=== PATIENT | female | born 1950 | race Caucasian/White ===

== ENCOUNTER 2024-10-30 05:46 | Inpatient (IN) | payer MEDICARE, MEDICAID ==
[2024-10-25 14:34] LABS: BILIRUBIN,URINE NEGATIVE (Neg); CLARITY,URINE SLIGHTLY CLOUDY (Clear); COLOR,URINE YELLOW (Yellow); GLUCOSE, URINE 250 mg/dl (Neg); KETONES,URINE NEGATIVE (Neg); LEUKOCYTE ESTERASE ,URINE NEGATIVE (Neg); NITRITES, URINE POSITIVE (Neg); OCCULT BLOOD,URINE NEGATIVE (Neg); PROTEIN,URINE TRACE mg/dl (Neg); UROBILINOGEN,URINE 0.2 E.U/dL (0.2-1.0)
[2024-10-25 14:36] LABS: BASOPHILS % (AUTO) 0.8 % (0-1); EOSINOPHILS # (AUTO) 0.1 X10'3 (0-0.9); EOSINOPHILS % (AUTO) 1.3 % (0-6); LYMPHOCYTES # (AUTO) 1.7 X10'3 (1.1-4.8); LYMPHOCYTES % (AUTO) 27.6 % (21-51); MEAN CORPUSCULAR HEMOGLOBIN 32.3 PG (27.0-31.0); MEAN CORPUSCULAR HGB CONC 32.7 g/dL (33.0-36.5); MEAN CORPUSCULAR VOLUME 98.6 FL (78-98); MEAN PLATELET VOLUME 7.8 FL (7.4-10.4); MONOCYTES # (AUTO) 0.6 X10'3 (0-0.9); MONOCYTES % (AUTO) 10.4 % (2-12); NEUTROPHILS # (AUTO) 3.7 X10'3 (1.8-7.7); NEUTROPHILS % (AUTO) 59.9 % (42-75); PRE OP HEMATOCRIT 40.4 % (35.0-45.0); PRE OP HEMOGLOBIN 13.2 g/dL (12.0-16.0); PRE OP PLATELET COUNT 234 X10'3 (140-440); PRE OP WHITE BLOOD COUNT 6.2 10'3 (4.8-10.8)
[2024-10-25 14:38] LABS: UA COLLECTION TYPE CLN CATCH MIDSTREAM
[2024-10-25 14:44] LABS: ALBUMIN 3.8 G/DL (3.4-5.0); ALKALINE PHOSPHATASE 88 IU/L (46-116); BLOOD UREA NITROGEN 26 MG/DL (7-18); BUN/CREATININE RATIO 17.2 (10.0-20.0); CALCIUM 9.4 MG/DL (8.5-10.1); CHLORIDE 106 MMOL/L (99-107); CREATININE 1.51 MG/DL (0.40-0.90); PRE OP ALT 23 U/L (30-65); PRE OP ANION GAP 11 (8-16); PRE OP AST 15 U/L (10-37); PRE OP BILIRUB, TOTAL 0.6 MG/DL (0.0-1.0); PRE OP GLUCOSE 114 MG/DL (70-104); PRE OP POTASSIUM 4.2 MMOL/L (3.4-5.1); PRE OP SODIUM 139 MMOL/L (135-145); TOTAL CARBON DIOXIDE 22.1 MMOL/L (24-32); TOTAL PROTEIN 7.6 G/DL (6.4-8.2); eGFR 34 ML/MIN
[2024-10-25 14:46] LABS: BACTERIA,URINE 4+ /HPF (Neg); MUCUS STRANDS NONE SEEN /LPF (Neg); RBC,URINE NONE SEEN /HPF (0-2); SQUAMOUS EPITHELIAL CELL,UR FEW /LPF (FEW)
[2024-10-25 14:47] LABS: WBC CLUMPS,URINE FEW /HPF (NEGATIVE)
[2024-10-30] VITALS (24 sets, daily range): BP systolic 128–160; BP diastolic 62–89; PULSE 71–86; RESP 12–22; TEMP 96.8–97.9; O2SAT 92–98
[~2024-10-30] VITALS: Ht 142.2 cm; Wt 65.0 kg
[2024-10-30] MEDS: enoxaparin 40mg/0.4ml syringe SUBCUT ONE (05:30)
[2024-10-30] MEDS: famotidine 20mg tablet PO ONE (05:30)
[~2024-10-30 05:46] MED LIST: ASCO500T8 PO; ATOR20TA66 PO; CALC-1215 PO; CITA20TA17 PO; DAPA10TA PO; DEXL60CA3 PO; FERR-39 PO; INSU100V49 SQ; LINA145C PO; METO-539 PO; POTA10CA95 PO; SEMA2PEN SUBCUT
[2024-10-30] MEDS: clindamycin 600mg/D5W 50ml 50 ML IV ONE (06:11)
[2024-10-30] MEDS: DOCUMENT DATE & TIME OF BETA-BLOCKER PO ONE (06:12)
[2024-10-30] MEDS ORDERED: vancomycin 1,000mg inj ONE (06:35)
[2024-10-30] MEDS ORDERED: gelatin sponge, absorbable (Gelfoam 100) sponge TP ONE (06:35)
[2024-10-30] MEDS ORDERED: BUPIVACAINE liposomal/PF 13.3 MG/ML vial IM ONE (06:36)
[2024-10-30] MEDS: gentamicin inj 325 MG in normal saline 100ml IV soln 91.875 ML IV ONE (07:25)
[2024-10-30] MEDS ORDERED: MIDAZolam 1 MG/ML 5ML VIAL ONE (07:30)
[2024-10-30] MEDS ORDERED: fentaNYL/PF 50MCG/1 ML 2ML syringe ONE (07:30)
[2024-10-30] MEDS ORDERED: dexamethasone sod phosphate 4mg/ml inj. ONE (07:35)
[2024-10-30] MEDS ORDERED: ROPIVAcaine 0.5% (5mg/ml) 30ml vial ONE (07:35)
[2024-10-30] MEDS ORDERED: propofol inj 20 ML IV ONE (07:35)
[2024-10-30] MEDS ORDERED: meperidine/PF 25mg/ml syringe IV PRN ×3 (07:45)
[2024-10-30] MEDS ORDERED: sevoflurane 250ml liquid IH ONE (07:45)
[2024-10-30] MEDS ORDERED: labetalol 20mg/4ml (5mg/ml) syringe IV PRN (07:45)
[2024-10-30] MEDS ORDERED: proCHLORperazine 10 MG/2 ml inj IV PRN (07:45)
[2024-10-30] MEDS ORDERED: morphine 4 MG/ML inj SYRINge IV PRN (07:45)
[2024-10-30] MEDS ORDERED: morphine 2 MG/ML inj. syringe IV PRN (07:45)
[2024-10-30] MEDS ORDERED: enalaprilat dihydrate 2.5mg/2ml vial IV PRN (07:45)
[2024-10-30] MEDS ORDERED: ondansetron/PF 4mg/2ml inj IV PRN (07:45)
[2024-10-30] MEDS ORDERED: BUPIVAcaine/PF 7.5mg/ml (0.75%) 10ml vial ONE (08:32)
[2024-10-30] MEDS ORDERED: ROPIVAcaine 0.2% (10 MG/5 ML) BOLUS INJECTION POPLITEAL PRN (10:20)
[2024-10-30] MEDS ORDERED: ondansetron/PF 4mg/2ml inj ONE (10:26)
[2024-10-30] MEDS ORDERED: acetaminophen 325mg tablet PO PRN (10:50)
[2024-10-30] MEDS ORDERED: acetaminophen 1,000mg/100ml IV 100 ML IV ONE (10:51)
[2024-10-30] MEDS: ROPIVAcaine 0.2%/PF PUMP/bolus 545 ML POPLITEAL SCH (11:25)
[2024-10-30] MEDS: ringers solution, lacted 1,000 ML IV SCH ×2 (11:35→14:32)
[2024-10-30] MEDS: enoxaparin 30mg/0.3ml syringe SQ SCH (15:15)
[2024-10-30] MEDS: INSULIN LISPRO 100 UNIT/ML INSULN.PEN MULTI-DOSE SQ ONE ×2 (15:51→23:56)
[2024-10-30] MEDS: HYDROcodone/acetaminophen 10/325mg tab PO PRN ×2 (17:28→23:58)
[2024-10-30] MEDS: docusate sod 100mg capsule PO SCH (21:40)
[2024-10-30] MEDS ORDERED: DEXTROSE 15 GM of carb/4 tabs (each vial/BOTTLE has 4 tablets) PO PRN ×2 (22:00)
[2024-10-30] MEDS ORDERED: dextrose 50%-water 50ml dispensing syringe IV PRN ×2 (22:00)
[2024-10-30] MEDS ORDERED: glucagon, human recombinant 1mg kit SUBCUT PRN (22:00)
[2024-10-31 02:00] VITALS: BP 152/81; PULSE 68; RESP 16; TEMP 97.8; O2SAT 98
[2024-10-31 06:00] VITALS: BP 160/80; PULSE 69; RESP 15; TEMP 98; O2SAT 96
[2024-10-31] MEDS: INSULIN LISPRO 100 UNIT/ML INSULN.PEN MULTI-DOSE SQ SCH (07:00)
[2024-10-31] MEDS: gentamicin inj 325 MG in normal saline 100ml IV soln 91.875 ML IV SCH (08:04)
[2024-10-31 10:00] VITALS: BP 135/77; PULSE 80; RESP 16; TEMP 97.6; O2SAT 96
[2024-10-31 18:00] VITALS: BP 150/70; PULSE 67; RESP 15; TEMP 97.9; O2SAT 96
[2024-10-31] MEDS: gabapentin 300mg capsule PO SCH (20:55)
[2024-10-31] MEDS: morphine 2 MG/ML inj. syringe IV PRN (20:55)
[2024-10-31 22:00] VITALS: BP 172/79; PULSE 70; RESP 16; TEMP 97.9; O2SAT 95
[2024-11-01 06:00] VITALS: BP 157/85; PULSE 83; RESP 16; TEMP 98; O2SAT 95
[2024-11-01 07:39] LABS: ALBUMIN 3.2 G/DL (3.4-5.0); ANION GAP 8 (8-16); BLOOD UREA NITROGEN 27 MG/DL (7-18); BUN/CREATININE RATIO 17.1 (10.0-20.0); CALCIUM 8.9 MG/DL (8.5-10.1); CHLORIDE 106 MMOL/L (99-107); CREATININE 1.58 MG/DL (0.40-0.90); GLUCOSE 171 MG/DL (70-104); POTASSIUM 3.9 MMOL/L (3.5-5.1); SODIUM 139 MMOL/L (135-145); TOTAL CARBON DIOXIDE 24.9 MMOL/L (24-32); eCRCL 18 ML/MIN; eGFR 32 ML/MIN
[2024-11-01 07:44] LABS: BASOPHILS % (AUTO) 0.4 % (0-1); EOSINOPHILS % (AUTO) 0.6 % (0-6); HEMATOCRIT 36.8 % (35.0-45.0); HEMOGLOBIN 12.2 g/dl (12.0-16.0); LYMPHOCYTES # (AUTO) 1.7 X10'3 (1.1-4.8); LYMPHOCYTES % (AUTO) 23.1 % (21-51); MEAN CORPUSCULAR HGB CONC 33.2 g/dL (33.0-36.5); MEAN CORPUSCULAR VOLUME 99.3 FL (78-98); MEAN PLATELET VOLUME 8.1 FL (7.4-10.4); MONOCYTES # (AUTO) 0.9 X10'3 (0-0.9); MONOCYTES % (AUTO) 11.9 % (2-12); NEUTROPHILS # (AUTO) 4.8 X10'3 (1.8-7.7); PLATELET COUNT 186 X10'3 (140-440); RED BLOOD COUNT 3.71 X10'6 (4.20-5.60); WHITE BLOOD COUNT 7.5 X10'3 (4.5-11.0)
[2024-11-01 08:00] VITALS: RESP 16; O2SAT 95
[2024-11-01 10:00] VITALS: BP 167/87; PULSE 81; RESP 16; TEMP 97.7; O2SAT 95
[2024-11-01 18:00] VITALS: BP 170/90; PULSE 78; RESP 16; TEMP 98.4; O2SAT 98
[2024-11-01 22:00] VITALS: BP 136/86; PULSE 74; RESP 16; TEMP 98.2; O2SAT 96
[2024-11-02 06:00] VITALS: BP 176/98; PULSE 75; RESP 16; TEMP 97.7; O2SAT 97
[2024-11-02 07:45] VITALS: RESP 14; O2SAT 97
[2024-11-02] MEDS ORDERED: INSULIN LISPRO 100 UNIT/ML INSULN.PEN MULTI-DOSE SQ PRN (08:35)
[2024-11-02] MEDS: ondansetron/PF 4mg/2ml inj IV PRN (08:45)
[2024-11-02] MEDS: magnesium citrate 296ml oral solution PO ONE (09:27)
[2024-11-02] MEDS: metoprolol succinate 25mg (24-HOUR) SR. Tablet PO ONE (09:28)
[2024-11-02 10:00] VITALS: BP 112/62; PULSE 98; RESP 16; TEMP 98.2; O2SAT 93
[2024-11-02 18:00] VITALS: BP 133/72; PULSE 75; RESP 16; TEMP 98.3; O2SAT 96
[2024-11-02] MEDS: atorvastatin 20mg tablet PO SCH (20:27)
[2024-11-02 22:00] VITALS: BP 132/58; PULSE 72; RESP 20; TEMP 98; O2SAT 96
[2024-11-03 06:00] VITALS: BP 154/67; PULSE 76; RESP 16; TEMP 97.3; O2SAT 96
[2024-11-03 08:00] VITALS: RESP 17; O2SAT 94
[2024-11-03] MEDS ORDERED: non-formulary drug (Calcium Carbonate/Vitamin D3 (Calcium + D 600 Mg Tablet) 1 EACH) PO SCH (08:00)
[2024-11-03] MEDS: enoxaparin 30mg/0.3ml syringe SQ SCH (08:00)
[2024-11-03] MEDS: ascorbic acid 500mg tablet PO SCH (08:13)
[2024-11-03] MEDS: metoprolol succinate 25mg (24-HOUR) SR. Tablet PO SCH (08:13)
[2024-11-03] MEDS: pantoprazole 40mg Tablet.DR PO SCH (08:13)
[2024-11-03] MEDS: citalopram 20mg tablet PO SCH (08:13)
[2024-11-03] MEDS: DAPAGLIFLOZIN 10MG TABLET PO SCH (08:13)
[2024-11-03 10:00] VITALS: BP 127/76; PULSE 75; RESP 16; TEMP 97.3; O2SAT 98
[2024-11-03] MEDS: magnesium citrate 296ml oral solution PO ONE (12:05)
[2024-11-03] MEDS: magnesium hydroxide 30ml (MOM) UD suspension PO PRN (16:02)
[2024-11-03 18:00] VITALS: BP 106/69; PULSE 79; RESP 16; TEMP 97.5; O2SAT 90
[2024-11-03] MEDS: bisacodyl 10mg suppository rectal RC PRN (20:35)
[2024-11-03 22:00] VITALS: BP 143/78; PULSE 81; RESP 15; TEMP 97.1; O2SAT 96
[2024-11-03 23:06] VITALS: RESP 16; O2SAT 90
[2024-11-04 06:00] VITALS: BP 128/68; PULSE 75; RESP 16; TEMP 98; O2SAT 96
[2024-11-04 08:00] VITALS: RESP 16; O2SAT 95
[2024-11-04 10:00] VITALS: BP 112/74; PULSE 76; RESP 16; TEMP 97.6; O2SAT 98
[2024-11-04] MEDS ORDERED: magnesium hydroxide 30ml (MOM) UD suspension PO PRN (17:25)
[2024-11-04 18:00] VITALS: BP 181/67; PULSE 74; RESP 15; TEMP 97.6; O2SAT 99
[2024-11-04 22:00] VITALS: BP 153/66; PULSE 81; RESP 15; TEMP 98; O2SAT 95
[2024-11-05 06:55] VITALS: BP 160/76; PULSE 73; RESP 14; TEMP 98; O2SAT 95
[2024-11-05 07:18] VITALS: RESP 16
== END 2024-11-05 09:00 | DRG 469 ==
LOC: PAS IN 05:46 → ORTHO 4S 14:10
PROVIDERS: ADMIT Podiatrist; ATTEND Podiatrist
PROC: 0SPG0JZ Removal of Synthetic Substitute from Left Ankle Joint, Open Approach (ICD-10-PCS; 2024-10-30)
PROC: 0MQR0ZZ Repair Left Ankle Bursa and Ligament, Open Approach (ICD-10-PCS; 2024-10-30)
PROC: 0SGJ0JZ Fusion of Left Tarsal Joint with Synthetic Substitute, Open Approach (ICD-10-PCS; 2024-10-30)
PROC: 0SRG0JZ Replacement of Left Ankle Joint with Synthetic Substitute, Open Approach (ICD-10-PCS; principal; 2024-10-30 07:45)
DX: T84.098A Other mechanical complication of other internal joint prosthesis, initial encounter (principal); M19.072 Primary osteoarthritis, left ankle and foot; E11.22 Type 2 diabetes mellitus with diabetic chronic kidney disease; N18.30 Chronic kidney disease, stage 3 unspecified; K59.00 Constipation, unspecified; I12.9 Hypertensive chronic kidney disease with stage 1 through stage 4 chronic kidney disease, or unspecified chronic kidney disease; E78.5 Hyperlipidemia, unspecified; F32.A Depression, unspecified; Z96.653 Presence of artificial knee joint, bilateral; X58.XXXA Exposure to other specified factors, initial encounter; G47.30 Sleep apnea, unspecified; Y83.8 Other surgical procedures as the cause of abnormal reaction of the patient, or of later complication, without mention of misadventure at the time of the procedure; Z79.4 Long term (current) use of insulin; Z83.3 Family history of diabetes mellitus; Z91.048 Other nonmedicinal substance allergy status; Z88.0 Allergy status to penicillin; Z79.899 Other long term (current) drug therapy; Y92.89 Other specified places as the place of occurrence of the external cause
CPT/HCPCS: 36415; 73600; 76000; 80048; 80053; 81001; 82948; 83036; 85025; 87077; 87081; 87088; 87186; 93005; 97110; 97161; 97530; A4615; A4618; A6223; A6253; A6446; A6449; A7000; C1713; C1776; C9290; G0378; J0131; J1100; J1580; J1650; J1815; J2003; J2250; J2270; J2405; J2704; J2795; J3010; J3370; J3490; J7120